=== PATIENT | male | born 1990 | race Caucasian/White ===

== ENCOUNTER 2018-08-29 12:53 | Emergency (ER) | payer BC ==
[~2018-08-29] VITALS: Ht 167.6 cm; Wt 78.0 kg
--- NOTE | 2018-08-29 12:54 | NUR ---
BROUGHT BACK TO BED #5 AND TRIAGED. REPORT GIVEN TO ANDRE
[2018-08-29 12:55] VITALS: BP_SYST 155
--- NOTE | 2018-08-29 13:00 | NUR ---
PT PRESENST TO ED C/O NAUSEA AND CHAVARRIA. PT HAS VAGUE EXPLANATION OF ORIGIN OF PAIN. PT ADMITS TO SMOKING MARIJUANA SINCE 14YRS OLD DAILY AND ETOH CONSUMPTION DAILY , HOWEVER REPORTS STOPPING SMOKING MARIJUANA X 3 DAYS. PT H/O HTN NONCOMPLAINT W/MEDS.
--- NOTE | 2018-08-29 13:05 | NUR ---
RIKA STOUT at bedside examining patient.
[2018-08-29] MEDS ORDERED: KETOROLAC TROMETHAMINE 30 MG VIAL IVP ONE (13:30)
[2018-08-29] MEDS ORDERED: NACL 0.9% 1,000 ML IV ONE (13:30)
[2018-08-29] MEDS ORDERED: ONDANSETRON HCL 4 MG/2 ML VIAL IVP ONE (13:30)
--- NOTE | 2018-08-29 13:30 | NUR ---
# 20 gauge angiocath placed to RAC. Use of asceptic technique. Opsite placed over site. Blood return noted. Flushed with 10 cc of normal saline. No evidence of infiltration noted. Patient tolerated well.
--- NOTE | 2018-08-29 14:00 | NUR ---
PT TOLERATING MEDCIATION CONTINUING TO MONITOR.
[2018-08-29 14:08] LABS: BASOPHILS # (AUTO) 0.1 K/uL (0.0-0.2); BASOPHILS % (AUTO) 1.2 % (0.0-2.0); EOSINOPHILS % (AUTO) 0.2 % (0.0-4.0); HEMATOCRIT 47.4 % (36-54); HEMOGLOBIN 15.9 g/dL (14.0-18.0); LYMPHOCYTES # (AUTO) 2.2 K/uL (1.0-5.5); LYMPHOCYTES % (AUTO) 27.2 % (20.5-51.5); MEAN CORPUSCULAR HEMOGLOBIN 32 pg (27-31); MEAN CORPUSCULAR HGB CONC 34 % (32-36); MEAN CORPUSCULAR VOLUME 96 fL (79.0-98.0); MONOCYTES # (AUTO) 0.7 K/uL (0.0-1.0); MONOCYTES % (AUTO) 8.7 % (1.7-9.3); NEUTROPHILS # (AUTO) 5.2 K/uL (1.8-7.7); NEUTROPHILS % (AUTO) 62.7 % (40.0-70.0); PLATELET COUNT (AUTO) 362 K/uL (130-430); RED BLOOD CELL COUNT(AUTO) 4.92 MIL/uL (4.2-6.2); RED CELL DISTRIBUTION WIDTH 12.5 % (9.0-15.0); WHITE BLOOD COUNT (AUTO) 8.2 K/uL (4.8-10.8)
[2018-08-29 14:41] LABS: BARBITURATE, URINE NEGATIVE (NEG <=200); BENZODIAZEPINE, URINE NEGATIVE (NEG <=150); CANNABINOID, URINE POSITIVE (NEG <=50); COCAINE, URINE NEGATIVE (NEG <=150); METHAMPHETAMINES SCREEN,URINE NEGATIVE (NEG <=500); OPIATE, URINE NEGATIVE (NEG <=100); PHENCYCLIDINE SCREEN,URINE NEGATIVE (NEG <=25); UR TRICYCLIC ANTIDEPRESSANTS NEGATIVE (NEG <=300); URINE AMPHETAMINE NEGATIVE (NEG <=500); URINE METHADONE NEGATIVE (NEG <=200); URINE OXYCODONE SCREEN NEGATIVE (NEG <=100); URINE PROPOXYPHENE SCREEN NEGATIVE (NEG <=300)
[2018-08-29 14:53] LABS: CALCIUM 9.3 mg/dL (8.4-11.0); CREATININE 0.95 mg/dL (0.55-1.30); POTASSIUM 3.7 mmol/L (3.5-5.1)
[2018-08-29 14:57] LABS: ALBUMIN 4.3 g/dL (3.4-4.8); TOTAL BILIRUBIN 0.8 mg/dL (0.0-1.0)
--- NOTE | 2018-08-29 16:00 | NUR ---
ATTEMPTED TO DISCHARGE PT AND PT STATES THAT HE WOULD LIKE MORE OF A WORK-UP. EXPLAINED TO PT THAT I WOULD HAVE KENNA STOUT PRESSURE SUPERVISOR SPEAK WITH HIM.
--- NOTE | 2018-08-29 16:08 | NUR ---
MEAL TEMPERER STOUT AT BEDSIDE SPEAKING IN DEPTH WITH PT ABOUT TESTING AND TEST RESULTS.
[2018-08-29 16:20] VITALS: BP_SYST 148
--- NOTE | 2018-08-29 16:20 | NUR ---
Patient given written and verbal discharge instructions and verbalizes understanding. ER MD discussed with patient the results and treatment provided. Patient in stable condition. ID arm band removed. IV catheter removed intact and dressing applied, no active bleeding. Rx of ZOFRAN given. Patient educated on pain management and to follow up with PMD. Pain Scale 0/10. Opportunity for questions provided and answered. Medication side effect fact sheet provided.
--- NOTE | 2018-08-29 16:30 | NUR ---
Note undone in EDM - 08/29/18 at 1633 by ESTEVAN Patient given written and verbal discharge instructions and verbalizes understanding. ER discussed with patient the results and treatment provided. Patient in stable condition. ID arm band removed. IV catheter removed intact and dressing applied, no active bleeding. Rx of ZOFRAN given. Patient educated on pain management and to follow up with PMD. Pain Scale 0/10. Opportunity for questions provided and answered. Medication side effect fact sheet provided.
== END 2018-08-29 16:20 | disposition home or self-care (01) ==
LOC: SED 12:53
DX: R51 Headache (principal); R11.0 Nausea; F17.210 Nicotine dependence, cigarettes, uncomplicated; R74.0 Nonspecific elevation of levels of transaminase and lactic acid dehydrogenase [LDH]; F12.90 Cannabis use, unspecified, uncomplicated; F10.99 Alcohol use, unspecified with unspecified alcohol-induced disorder
CPT/HCPCS: 36415; 80053; 80307; 83690; 85025; 96374; 99284; J1885; J2405; J7030